=== PATIENT | female | born 1995 | race Caucasian/White ===

== ENCOUNTER 2021-10-15 08:08 | Emergency (ER) | payer MEDICAID, OTHER ==
[~2021-10-15] VITALS: Ht 149.9 cm; Wt 40.8 kg
[2021-10-15 08:17] VITALS: BP 115/70
--- NOTE | 2021-10-15 08:38 | NUR ---
Dr. Echevarria at bedside examining patient
--- NOTE | 2021-10-15 08:40 | NUR ---
Tra abel in [facility] - 10/15/21 at 0840 by DIPAK ab a
--- NOTE | 2021-10-15 08:40 | NUR ---
Lab at patient bedside. Drawing ordered labs.
--- NOTE | 2021-10-15 08:41 | NUR ---
26 y/o female came in for vaginal bleeding x 3 days. Patient's last period was on late August/late September. Patient was unable to state exact date. This is patients 4th . Patient has 9/10 pain in lower abdomen, sharp pain. Patient has control implant on left arm. Patient has not taken anything for pain at home. medical history: Denies NKA G4 L3
[2021-10-15] MEDS: ACETAMINOPHEN 325 MG TAB PO ONE (08:48)
--- NOTE | 2021-10-15 08:55 | NUR ---
Ultrasound at bedside.
[2021-10-15 08:56] LABS: BASOPHILS % (AUTO) 0.5 % (0.0-2.0); EOSINOPHILS # (AUTO) 0.1 K/uL (0-0.4); EOSINOPHILS % (AUTO) 1.3 % (0.0-4.0); HEMATOCRIT 37.9 % (36-48); HEMOGLOBIN 12.5 g/dL (12.0-16.0); LYMPHOCYTES # (AUTO) 1.7 K/uL (2.5-16.5); LYMPHOCYTES % (AUTO) 25.1 % (20.5-51.1); MEAN CORPUSCULAR HEMOGLOBIN 28 pg (27-31); MEAN CORPUSCULAR HGB CONC 33 g/dL (33-37); MEAN CORPUSCULAR VOLUME 85.1 fL (80-94); MONOCYTES # (AUTO) 0.4 K/uL (0.8-1.0); MONOCYTES % (AUTO) 5.7 % (1.7-9.3); NEUTROPHILS # (AUTO) 4.6 K/uL (1.8-7.7); NEUTROPHILS % (AUTO) 67.4 % (42.2-75.2); PLATELET COUNT (AUTO) 274 K/uL (140-450); RED BLOOD CELL COUNT(AUTO) 4.45 MIL/uL (4.20-5.40); RED CELL DISTRIBUTION WIDTH 14.4 % (11.6-13.7); WHITE BLOOD COUNT (AUTO) 6.8 K/uL (4.8-10.8)
[2021-10-15 09:47] LABS: APPEARANCE,URINE CLOUDY (CLEAR); BILIRUBIN,URINE NEGATIVE (NEGATIVE); BLOOD, URINE NEGATIVE (NEGATIVE); COLOR,URINE AMBER (YELLOW); LEUKOCYTE ESTERASE ,URINE NEGATIVE (NEGATIVE); NITRITE, URINE NEGATIVE (NEGATIVE); UGLUCOSE NEGATIVE (NEGATIVE)
[2021-10-15] MEDS ORDERED: [UNRECOGNIZED DRUG - CODE] PO (10:08)
[2021-10-15 10:11] VITALS: BP 115/70
--- NOTE | 2021-10-15 10:11 | NUR ---
Chart checked and completed. The patient's care was reviewed and supervised by Say Matias RN.
--- NOTE | 2021-10-15 10:11 | NUR ---
Patient discharged with information for threatened miscarriage and first trimester of v/s stable. Written and verbal after care instructions given. Patient alert, oriented and verbalized understanding of instructions. Ambulatory with steady gait. All questions addressed prior to discharge. ID band removed. Patient advised to follow up with PMD. Rx of given. Opportunity to ask questions provided and answered.
== END 2021-10-15 10:11 | disposition home or self-care (01) ==
LOC: MED 08:08
DX: O20.0 Threatened abortion (principal); Z3A.11 11 weeks gestation of pregnancy; Z79.899 Other long term (current) drug therapy
CPT/HCPCS: 36415; 76817; 81003; 81025; 84702; 85025; 86900; 86901; 99284; Q0092